=== PATIENT | female | born 1980 | race Caucasian/White ===

== ENCOUNTER 2016-07-18 18:56 | Emergency (ER) | payer OTHER ==
[2016-07-18] MEDS ORDERED: HYDROcod/ACETAM 5/325 MG TABLET PO STA (19:43)
[2016-07-18] MEDS ORDERED: HYDROcod/ACETAM 5/325 MG TABLET ONE (20:04)
== END 2016-07-18 20:25 | disposition home or self-care (01) ==
DX: S89.91XA Unspecified injury of right lower leg, initial encounter (principal); W50.1XXA Accidental kick by another person, initial encounter; Y93.83 Activity, rough housing and horseplay; Y99.8 Other external cause status; R03.0 Elevated blood-pressure reading, without diagnosis of hypertension
CPT/HCPCS: 73564; 99283; A9270

== ENCOUNTER 2016-10-12 15:44 | Emergency (ER) | payer OTHER ==
--- NOTE | 2016-10-12 18:17 | ED Physician Documentation ---
PD HPI ABD PAIN - Stated complaint Stated Complaint: ABD PX/VOMITTING - Chief complaint Chief Complaint: Abd Pain - History obtained from History obtained from: Patient - History of Present Illness Timing - onset: Today Timing - duration: Hours Timing - details: Abrupt onset, Still present Quality: Aching, Pain Location: Epigastric Improved by: No: Eating, Vomiting Worsened by: Eating, Breathing, Palpation Associated symptoms: Nausea, Vomiting. No: Fever, Diarrhea, Constipation, Dysuria Similar symptoms before: No diagnosis (had similar about 2 years ago and was treated as stomach virus, with normal U/S then normal labs. Presume gastric etiology.) Recently seen: Not recently seen Review of Systems Constitutional: denies: Fever, Chills Nose: denies: Rhinorrhea / runny nose, Congestion Throat: denies: Sore throat Cardiac: denies: Chest pain / pressure, Palpitations Respiratory: denies: Cough GI: reports: Abdominal Pain, Nausea, Vomiting, Diarrhea (loose stools today, with light brown color.) : denies: Dysuria, Frequency Skin: denies: Rash PD PAST MEDICAL HISTORY - Past Medical History Cardiovascular: None Respiratory: None Neuro: None Endocrine/Autoimmune: None GI: Pancreatitis, Cholelithiasis - Past Surgical History Past Surgical History: No - Present Medications Home Medications: Ambulatory Orders Medication Instructions Recorded Confirmed Diphenoxylate/Atropine [Lomotil] 1 each PO QID PRN #15 tablet 10/12/16 Famotidine [Pepcid] 20 mg PO ONCE #30 tablet 10/12/16 Ondansetron Odt [Zofran] 4 mg TL Q6H PRN #15 tablet 10/12/16 Verapamil [Calan] 80 mg PO DAILY 10/12/16 10/12/16 - Allergies Allergies/Adverse Reactions: Allergies Allergy/AdvReac Type Severity Reaction Status Date / Time latex Allergy swelling Verified 09/30/15 18:15 - Social History Does the pt smoke?: No Smoking Status: Never smoker Does the pt drink ETOH?: No Does the pt have substance abuse?: No - Immunizations Immunizations are current?: Yes - POLST Patient has POLST: No PD ED PE NORMAL - Vitals Vital signs reviewed: Yes - General General: Alert and oriented X 3, No acute distress, Well developed/nourished - HEENT HEENT: PERRL, Ears normal, Pharynx benign - Neck Neck: Supple, no meningeal sign, No bony TTP - Cardiac Cardiac: RRR, No murmur - Respiratory Respiratory: Clear bilaterally - Abdomen Abdomen: Normal bowel sounds, Soft, Non tender, Non distended, No organomegaly Results - Vitals Vitals: Oxygen O2 Source Room air - Labs Labs: Laboratory Tests 10/12/16 10/12/16 10/12/16 18:52 18:52 19:35 WBC 9.5 RBC 4.64 Hgb 13.0 Hct 38.6 MCV 83.2 MCH 28.1 MCHC 33.8 RDW 12.8 Plt Count 305 MPV 7.1 L Neut # 7.1 H Lymph # 1.6 [place] # 0.6 Eos # 0.1 Baso # 0.1 Absolute Nucleated RBC 0.00 Nucleated RBCs 0.0 Sodium 138 Potassium 4.1 Chloride 106 Carbon Dioxide 23 Anion Gap 9.0 BUN 13 Creatinine 0.5 Estimated GFR (MDRD) 139 Glucose 112 H Calcium 9.2 Total Bilirubin 0.4 AST 36 ALT 41 Alkaline Phosphatase 104 Total Protein 8.7 H Albumin 4.5 Globulin 4.2 Albumin/Globulin Ratio 1.1 Lipase 21 L Urine Color YELLOW Urine Clarity CLEAR Urine pH 5.5 Ur Specific [place] >=1.030 H Urine Protein NEGATIVE Urine Glucose (UA) NEGATIVE Urine Ketones NEGATIVE Urine Occult Blood NEGATIVE Urine Nitrite NEGATIVE Urine Bilirubin NEGATIVE Urine Urobilinogen 0.2 (NORMAL) Ur Leukocyte Esterase NEGATIVE Ur Microscopic Review NOT INDICATED Urine Culture Comments NOT INDICATED Urine HCG, Qual 10/12/16 19:35 WBC RBC Hgb Hct MCV MCH MCHC RDW Plt Count MPV Neut # Lymph # [place] # Eos # Baso # Absolute Nucleated RBC Nucleated RBCs Sodium Potassium Chloride Carbon Dioxide Anion Gap BUN Creatinine Estimated GFR (MDRD) Glucose Calcium Total Bilirubin AST ALT Alkaline Phosphatase Total Protein Albumin Globulin Albumin/Globulin Ratio Lipase Urine Color Urine Clarity Urine pH Ur Specific [place]yman >=1.030 H Urine Protein Urine Glucose (UA) Urine Ketones Urine Occult Blood Urine Nitrite Urine Bilirubin Urine Urobilinogen Ur Leukocyte Esterase Ur Microscopic Review Urine Culture Comments Urine HCG, Qual NEGATIVE PD MEDICAL DECISION MAKING - ED course Complexity details: reviewed results, considered differential (presume gastritis with normal labs and U/S of GB but is showing some fatty liver. No stones nor other acute process noted. ), d/w patient Departure - Departure Disposition: 01 Home, Self Care Clinical Impression: Gastroenteritis Abdominal pain Qualifiers: Abdominal location: upper abdomen, unspecified Qualified Code(s): R10.10 - Upper abdominal pain, unspecified Gastritis Qualifiers: Gastritis type: unspecified gastritis Chronicity: acute Gastritis bleeding: without bleeding Qualified Code(s): K29.00 - Acute gastritis without bleeding Condition: Stable Record reviewed to determine appropriate education?: Yes Instructions: ED Gastritis, ED Gastroenteritis Viral Follow-Up: Jossy Renteria PA-C [Primary Care Provider] - Prescriptions: Diphenoxylate/Atropine [Lomotil] 1 each PO QID PRN #15 tablet PRN Reason: Diarrhea Famotidine [Pepcid] 20 mg PO ONCE #30 tablet Ondansetron Odt [Zofran] 4 mg TL Q6H PRN #15 tablet PRN Reason: Nausea / Vomiting Comments: Avoid NSAIDs, drink lots of fluids, bland food. This could be a viral illness with nausea and diarrhea. The pain of it with eating could also suggest an irritated stomach (gastritis). Famotidine daily for 2 weeks to reduce stomach acids. Zofran if needed for nausea. Lomotil for diarrhea. Tylenol as needed for pains. Recheck if not improved over the next 2-3 days. Discharge Date/Time: 10/12/16 21:04
[2016-10-12] MEDS ORDERED: ONDANSETRON 4 MG/2 ML VIAL IVP STA (18:31)
[2016-10-12] MEDS ORDERED: MAG HYDROX/AL HYDROX/SIMETH 30 ML UDC PO STA (18:31)
[2016-10-12] MEDS ORDERED: KETOROLAC 60 MG/2 ML VIAL IVP STA (18:31)
[2016-10-12] MEDS ORDERED: SODIUM CHLORIDE 0.9% 1,000 ML IV ONE (18:32)
[2016-10-12] MEDS ORDERED: KETOROLAC 30 MG/ML VIAL ONE (18:54)
[2016-10-12] MEDS ORDERED: ONDANSETRON 4 MG/2 ML VIAL ONE (18:54)
[2016-10-12 18:59] LABS: BASOPHILS # (AUTO) 0.1 10^3/uL (0.0-0.1); BASOPHILS % (AUTO) 0.6 %; EOSINOPHILS # (AUTO) 0.1 10^3/uL (0.0-0.7); EOSINOPHILS % (AUTO) 0.7 %; HCT - HEMATOCRIT 38.6 % (37.0-47.0); LYMPHOCYTES # (AUTO) 1.6 10^3/uL (1.5-3.5); LYMPHOCYTES % (AUTO) 17.3 %; MEAN CORPUSCULAR HEMOGLOBIN 28.1 pg (27.0-31.0); MEAN CORPUSCULAR HGB CONC 33.8 g/dL (32.0-36.0); MEAN CORPUSCULAR VOLUME 83.2 fL (81.0-99.0); MEAN PLATELET VOLUME 7.1 fL (7.9-10.8); MONOCYTES # (AUTO) 0.6 10^3/uL (0.0-1.0); MONOCYTES % (AUTO) 6.6 %; NEUTROPHILS # (AUTO) 7.1 10^3/uL (1.5-6.6); NEUTROPHILS % (AUTO) 74.8 %; RED BLOOD COUNT 4.64 10^6/uL (4.20-5.40); RED CELL DISTRIBUTION WIDTH 12.8 % (12.0-15.0); UNCORRECTED WHITE BLOOD COUNT 9.5 x10^3/uL; WHITE BLOOD COUNT 9.5 x10^3/uL (4.8-10.8)
[2016-10-12 19:10] LABS: ALBUMIN/GLOBULIN RATIO 1.1 (1.0-2.2); BILIRUBIN,TOTAL 0.4 mg/dL (0.2-1.0); CALCIUM 9.2 mg/dL (8.5-10.3); CREATININE 0.5 mg/dL (0.4-1.0); POTASSIUM 4.1 mmol/L (3.5-5.0); TOTAL PROTEIN 8.7 g/dL (6.7-8.2)
[2016-10-12] MEDS ORDERED: MAG HYDROX/AL HYDROX/SIMETH 30 ML UDC ONE (19:34)
[2016-10-12 19:42] LABS: BILIRUBIN,URINE NEGATIVE (NEGATIVE); PH,URINE 5.5 PH (5.0-7.5)
[2016-10-12 19:43] LABS: HCG UR QUAL NEGATIVE
[2016-10-12 19:44] LABS: UA CHARGE (STRIP ONLY) YES; UR CULTURE IF IND NOT INDICATED
--- NOTE | 2016-10-12 20:07 | Ultrasound Preliminary Report ---
Exam: US Abdomen Limited IMPRESSION: 1. Severe fatty liver. 2. The gallbladder appears within normal limits. No bile duct dilatation is seen. Limited visualizati on as above. [facility] SITE ID: [id number]
--- NOTE | 2016-10-12 20:09 | Ultrasound Report ---
EXAM: ABDOMEN ULTRASOUND LIMITED, RUQ EXAM DATE: 10/12/2016 07:42 PM. CLINICAL HISTORY: Right upper quadrant abdominal pain for 3 days. COMPARISON: CT abdomen and pelvis 04/06/2013. TECHNIQUE: Real-time scanning was performed with static images obtained. FINDINGS: Liver: Severe fatty liver. Limited penetration which limits visualization. Liver length 19.5 cm. Main portal vein flow: Hepatopetal. Gallbladder: Gallbladder wall measures 2 mm. No stones, wall thickening, or sonographic Gonzales's sign . Mildly limited visualization due to limited penetration. Biliary System: Common duct measures 3-4 mm. No intrahepatic or extrahepatic ductal dilatation. Limit ed visualization. Other: Visualized portions of the pancreas appear unremarkable. Limited visualization. Right kidney measures 11.8 cm. No hydronephrosis. Limited penetration which results in limited visualization due to patient's body habitus and bowel ga s. IMPRESSION: 1. Severe fatty liver. 2. The gallbladder appears within normal limits. No bile duct dilatation is seen. Limited visualizati on as above. [facility] Referring Provider Line: [phone] SITE ID: [id number]
[2016-10-12] MEDS ORDERED: DIPHENOX/ATROPINE 2.5/0.025 MG TABLET PO STA (20:51)
[2016-10-12] MEDS ORDERED: ONDANSETRON ODT 4 MG Prepack 2 TL PRN (20:51)
[2016-10-12] MEDS ORDERED: ACETAMINOPHEN 325 MG TABLET PO STA (20:51)
[2016-10-12] MEDS ORDERED: FAMOTIDINE 20 MG TABLET PO STA (20:53)
[2016-10-12 20:55] VITALS: BP 130/68
[2016-10-12] MEDS ORDERED: ACETAMINOPHEN 325 MG TABLET PO ONE (20:55)
[2016-10-12] MEDS ORDERED: DIPHENOX/ATROPINE 2.5/0.025 MG TABLET PO ONE (20:55)
[2016-10-12] MEDS ORDERED: ONDANSETRON ODT 4 MG Prepack 2 TL ONE (20:55)
== END 2016-10-12 21:04 | disposition home or self-care (01) ==
LOC: ED 15:44
DX: K52.9 Noninfective gastroenteritis and colitis, unspecified (principal); K29.00 Acute gastritis without bleeding
CPT/HCPCS: 36415; 76705; 80053; 81003; 81025; 83690; 85025; 96361; 96374; 96375; 99284; A9270; 81001; 87086

== ENCOUNTER 2017-02-13 18:14 | Emergency (ER) | payer OTHER ==
[2017-02-13 18:45] VITALS: BP 162/102
--- NOTE | 2017-02-13 19:32 | ED Physician Documentation ---
PD HPI SKIN - Stated complaint Stated Complaint: RASH - Chief complaint Chief Complaint: Ext Problem - History obtained from History obtained from: Patient - History of Present Illness Timing - onset: Other (She has a mildly painful red rash over the dorsal upper left arm that started yesterday and worsened today.) Review of Systems Constitutional: reports: Myalgias, Fatigue. denies: Fever, Chills Throat: denies: Dental pain / toothache, Sore throat Cardiac: denies: Chest pain / pressure, Palpitations PD PAST MEDICAL HISTORY - Past Medical History Cardiovascular: Hypertension Respiratory: None Neuro: None Endocrine/Autoimmune: None, Other GI: Pancreatitis, Cholelithiasis HEENT: None Other Past Medical History: Is being worked up for a thyroid issue- unspecified - Past Surgical History Past Surgical History: No - Present Medications Home Medications: Ambulatory Orders Medication Instructions Recorded Confirmed Verapamil [Calan] 180 mg PO DAILY 10/12/16 02/13/17 Acyclovir 800 mg PO 5XD 10 Days tablet 02/13/17 predniSONE [Deltasone] 20 mg PO [id number] #21 tab 02/13/17 - Allergies Allergies/Adverse Reactions: Allergies Allergy/AdvReac Type Severity Reaction Status Date / Time latex Allergy swelling Verified 02/13/17 18:45 - Social History Does the pt smoke?: No Smoking Status: Never smoker Does the pt drink ETOH?: No Does the pt have substance abuse?: No - Immunizations Immunizations are current?: Yes - POLST Patient has POLST: No PD ED PE NORMAL - Vitals Vital signs reviewed: Yes - General General: Alert and oriented X 3, No acute distress - Neck Neck: Supple, no meningeal sign, No bony TTP - Derm Derm: Other (She has a classic area of zoster on the upper left tricep with a red base and vesicles.) - Neuro Neuro: Alert and oriented X 3, Normal speech - Psych Psych: Normal mood, Normal affect Results - Vitals Vitals: Vital Signs - 24 hr 02/13/17 18:39 Temperature 37.1 C Heart Rate 105 H Respiratory 15 Rate Blood Pressure 162/102 H O2 Saturation 99 Oxygen O2 Source Room air PD MEDICAL DECISION MAKING - ED course ED course: The patient and family were counseled as to the diagnosis and need for follow- up. I counseled the patient with regard to signs and symptoms that would necessitate an urgent reevaluation in the emergency department. They understand they are welcome to return at any time if worse or if not improving as expected. This document was made in part using voice recognition software. While efforts are made to proofread this documents, sound alike and grammatical errors may occur. Departure - Departure Disposition: 01 Home, Self Care Clinical Impression: Shingles Qualifiers: Herpes zoster complications: without complications Qualified Code(s): B02.9 - Zoster without complications Condition: Good Record reviewed to determine appropriate education?: Yes Instructions: ED Shingles Prescriptions: Acyclovir 800 mg PO 5XD 10 Days tablet predniSONE [Deltasone] 20 mg PO [id number] #21 tab Comments: Call your doctor to arrange a follow-up appointment, make the next available appointment. In the interim, return anytime if worse or if new symptoms develop. Your blood pressure was elevated today on check into the emergency department. This does not mean that you have hypertension, it is a common phenomenon to come to the emergency department and have elevated blood pressure. I recommend that she see your primary care physician within the week to have it rechecked when you are feeling better.
== END 2017-02-13 20:09 | disposition home or self-care (01) ==
LOC: ED 18:14
DX: B02.9 Zoster without complications (principal); I10 Essential (primary) hypertension
CPT/HCPCS: 99283

== ENCOUNTER 2017-05-18 13:04 | Emergency (ER) | payer OTHER ==
[2017-05-18 13:31] VITALS: BP 137/77
[2017-05-18] MEDS ORDERED: DEXAMETHASONE 10 MG/ML VIAL PO STA (14:30)
--- NOTE | 2017-05-18 14:40 | ED Physician Documentation ---
History of Present Illness - Stated complaint Stated Complaint: LEFT EAR PX - Chief complaint Chief Complaint: Heent - History obtained from History obtained from: Patient - History of Present Illness Timing: Yesterday Pain level max: 5 Pain level now: 4 Improved by: nothing Worsened by: nothing - Additonal information Additional information: Patient is a 37-year-old female who presents to the emergency department with left ear pain since yesterday. 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 Has also been sick with viral URI symptoms recently, nasal congestion, rhinorrhea, mild sore throat. No fevers. Mild dry cough. Review of Systems Constitutional: denies: Fever, Chills GI: denies: Vomiting : denies: Now EGA PD PAST MEDICAL HISTORY - Past Medical History Past Medical History: Yes Cardiovascular: Hypertension Respiratory: None Neuro: None Endocrine/Autoimmune: None, Other GI: Pancreatitis, Cholelithiasis HEENT: None - Past Surgical History Past Surgical History: No - Present Medications Home Medications: Ambulatory Orders Medication Instructions Recorded Confirmed Verapamil [Calan] 180 mg PO DAILY 10/12/16 05/18/17 Cetirizine HCl/Pseudoephedrine 1 each PO BID PRN #30 tab.er.12h 05/18/17 [Zyrtec-D Tablet] - Allergies Allergies/Adverse Reactions: Allergies Allergy/AdvReac Type Severity Reaction Status Date / Time latex Allergy swelling Verified 05/18/17 13:31 - Social History Does the pt smoke?: No Smoking Status: Never smoker Does the pt drink ETOH?: No Does the pt have substance abuse?: No - Immunizations Immunizations are current?: Yes - POLST Patient has POLST: No PD ED PE NORMAL - Vitals Vital signs reviewed: Yes - General General: Alert and oriented X 3, No acute distress, Well developed/nourished - HEENT HEENT: PERRL, Ears normal, Moist mucous membranes, Pharynx benign, Other (B TM normal. normal canals.) - Neck Neck: Supple, no meningeal sign, No adenopathy - Cardiac Cardiac: RRR - Respiratory Respiratory: No respiratory distress, Clear bilaterally - Derm Derm: Warm and dry - Neuro Neuro: Alert and oriented X 3 - Psych Psych: Normal mood, Normal affect Results - Vitals Vitals: Vital Signs - 24 hr 01/12/18 13:28 Temperature 36.6 C Heart Rate 92 Respiratory 16 Rate Blood Pressure 137/77 H O2 Saturation 100 Oxygen O2 Source Room air PD MEDICAL DECISION MAKING - ED course Complexity details: considered differential, d/w patient ED course: Patient is a 29-year-old female who presents to the emergency department with left-sided otalgia of unclear etiology. Possible eustachian tube dysfunction? Given dexamethasone will place on decongestants for home. We will have her follow-up with her doctor for further evaluation and care. She has URI symptoms as well. No evidence of pneumonia. Patient counseled regarding signs and symptoms for which I believe and urgent re-evaluation would be necessary. Patient with good understanding of and agreement to plan and is comfortable going home at this time This document was made in part using voice recognition software. While efforts are made to proofread this document, sound alike and grammatical errors may occur. Departure - Departure Disposition: Home, Self Care Clinical Impression: Otalgia of left ear Eustachian tube dysfunction Qualifiers: Laterality: left Qualified Code(s): H69.82 - Other specified disorders of Eustachian tube, left ear Condition: Good Instructions: ED URI Viral Follow-Up: Jossy Renteria PA-C [Primary Care Provider] - Within 1 week Prescriptions: Cetirizine HCl/Pseudoephedrine [Zyrtec-D Tablet] 1 each PO BID PRN #30 tab.er.12h PRN Reason: Nasal Congestion Comments: You can use Motrin or Tylenol as needed for pain. Return if you worsen. Discharge Date/Time: 05/18/17 15:11
== END 2017-05-18 15:11 | disposition home or self-care (01) ==
LOC: ED 13:04
DX: H92.02 Otalgia, left ear (principal); H69.82 Other specified disorders of Eustachian tube, left ear
CPT/HCPCS: 99283

== ENCOUNTER 2017-10-13 14:35 | Emergency (ER) | payer OTHER ==
--- NOTE | 2017-10-13 15:56 | ED Physician Documentation ---
PD HPI SKIN - Stated complaint Stated Complaint: LT ARM PAINFUL RASH - Chief complaint Chief Complaint: Wound - History obtained from History obtained from: Patient - History of Present Illness Timing - onset: How many days ago (2-3 days of irritation and pain left lateral shoulder and then rash appearing today. Had had similar in the past Dx shingles. ) Timing - duration: Days Timing - details: Gradual onset Location: LUE (posterior upper arm/shoulder) Quality / character: Painful, Burning Associated symptoms: Myalgias. No: Fever, N/V/D Similar symptoms before: Diagnosis (shingles) Review of Systems Constitutional: reports: Myalgias. denies: Fever, Chills Ears: reports: Ear pain (left ear with some pain for few days as well. No drainage.) Nose: denies: Rhinorrhea / runny nose, Congestion Throat: denies: Sore throat Cardiac: denies: Chest pain / pressure Respiratory: denies: Dyspnea, Cough GI: denies: Nausea, Vomiting, Diarrhea Skin: reports: Rash (left upper arm/shoulder) PD PAST MEDICAL HISTORY - Past Medical History Cardiovascular: Hypertension Respiratory: None Endocrine/Autoimmune: None, Other GI: Pancreatitis, Cholelithiasis HEENT: None - Past Surgical History Past Surgical History: No - Present Medications Home Medications: Ambulatory Orders Medication Instructions Recorded Confirmed Verapamil [Calan] 180 mg PO DAILY 10/12/16 05/18/17 Cetirizine HCl/Pseudoephedrine 1 each PO BID PRN #30 tab.er.12h 05/18/17 [Zyrtec-D Tablet] Acyclovir 800 mg PO 5XD #35 tablet 10/13/17 Amitriptyline [Elavil] 25 mg PO QPM #30 tablet 10/13/17 Dexamethasone [Decadron] 4 mg PO DAILY #5 tablet 10/13/17 HYDROcod/ACETAM 5/325 [[place] 5/325] 1 tab PO Q6H PRN #15 tablet 10/13/17 Neomycin/Polymyx/Hc Otic Drops 4 drops OT QID #1 bottle 10/13/17 [Cortisporin Ear Susp] - Allergies Allergies/Adverse Reactions: Allergies Allergy/AdvReac Type Severity Reaction Status Date / Time latex Allergy swelling Verified 05/18/17 13:31 - Social History Does the pt smoke?: No Smoking Status: Never smoker Does the pt drink ETOH?: No Does the pt have substance abuse?: No - Immunizations Immunizations are current?: Yes - POLST Patient has POLST: No PD ED PE NORMAL - Vitals Vital signs reviewed: Yes - General General: Alert and oriented X 3, Well developed/nourished - HEENT HEENT: Pharynx benign. No: Ears normal (right is okay; left canal with some redness mid canal and mild swelling. No blistering. No rash around the ear. No adenopathy. ) - Neck Neck: Supple, no meningeal sign, No adenopathy - Cardiac Cardiac: RRR, No murmur - Respiratory Respiratory: Clear bilaterally - Derm Derm: Normal color, Warm and dry, Other (let posterolateral shoulder with skin tenderness and a small patch of red based blistering rash c/w early shingles. ) - Neuro Neuro: Alert and oriented X 3, No motor deficit, No sensory deficit Results - Vitals Vitals: Oxygen O2 Source Room air PD MEDICAL DECISION MAKING - ED course Complexity details: considered differential (the ear canal has some redness and swelling but I think is separate from the arm shingles, as very different nerve and the ear part looks OE and not blistering/etc. No rash around the ear either. ), d/w patient - Sepsis Event Vital Signs: Oxygen O2 Source Room air Departure - Departure Disposition: 01 Home, Self Care Clinical Impression: Left arm pain Shingles Qualifiers: Herpes zoster complications: without complications Qualified Code(s): B02.9 - Zoster without complications Left otitis externa Qualifiers: Otitis externa type: unspecified type Chronicity: acute Qualified Code(s): H60.502 - Unspecified acute noninfective otitis externa, left ear Condition: Stable Record reviewed to determine appropriate education?: Yes Instructions: ED Shingles, ED Otitis Externa Follow-Up: Kendy Saunders MD [Primary Care Provider] - Prescriptions: Acyclovir 800 mg PO 5XD #35 tablet Amitriptyline [Elavil] 25 mg PO QPM #30 tablet Dexamethasone [Decadron] 4 mg PO DAILY #5 tablet HYDROcod/ACETAM 5/325 [[place] 5/325] 1 tab PO Q6H PRN #15 tablet PRN Reason: Pain Neomycin/Polymyx/Hc Otic Drops [Cortisporin Ear Susp] 4 drops OT QID #1 bottle Comments: Drink lots of fluids. Use acyclovir antiviral 5 times a day for 7 days. Decadron steroid daily for 5 days. Elavil nightly for several weeks to try to reduce the nerve irritation and pain duration. Add Tylenol or hydrocodone if needed for pain. Your ear canal does show some irritation but I do not think it is related to the shingles. It looks like a separate your canal infection and so use the Cortisporin eardrops for that. Follow-up with your primary care later this week. Discharge Date/Time: 10/13/17 17:34
[2017-10-13] MEDS ORDERED: ACYCLOVIR 200 MG CAPSULE PO STA (16:47)
[2017-10-13] MEDS ORDERED: DEXAMETHASONE 10 MG/ML VIAL PO STA (16:47)
[2017-10-13 17:44] VITALS: BP 145/91
== END 2017-10-13 17:34 | disposition home or self-care (01) ==
LOC: ED 14:35
DX: B02.9 Zoster without complications (principal); H60.502 Unspecified acute noninfective otitis externa, left ear; I10 Essential (primary) hypertension
CPT/HCPCS: 99283; 99284; A9270